=== PATIENT | female | born 2000 | race African-American/Black ===

== ENCOUNTER 2020-02-23 14:25 | Emergency (ER) | payer SELFPAY ==
[2020-02-23 15:10] VITALS: BP 116/74; PULSE 75; RESP 18; TEMP 36.8; O2SAT 100; BMI 26.4
--- NOTE | 2020-02-23 15:38 | ED.FEMALEGU ---
HPI - Female Genitourinary General Chief complaint: Urogenital-Female Stated complaint: ?uti Time Seen by Provider: 02/23/20 15:21 Source: patient Mode of arrival: ambulatory Limitations: no limitations History of Present Illness HPI Narrative: States burning-like discomfort with urination/pressure since yesterday consistent with her previous UTI. No abdominal pain, pelvic pain, nausea vomiting. No vaginal bleeding, GI symptoms. No concern for STI per patient. No vaginal rash or lesions. MD elicited complaint: dysuria and UTI Pertinent past history: recurrent UTIs Onset (ago): day(s) Severity: mild Female Urogenital Radiation: Non-Radiating Vaginal discharge: none Vaginal bleeding: none Urinary symptoms: Dysuria Exacerbating factors: urination Relieving factors: none Associated symptoms: denies other symptoms Treatment prior to arrival: none Sexual activity: Yes Patient : No Related Data Previous Rx's Medication Instructions Recorded nitrofurantoin monohyd/m-cryst 100 mg PO Q12H 7 Days #14 cap 02/23/20 [Macrobid] phenazopyridine [Pyridium] 100 mg PO TID PRN #7 tab 02/23/20 Allergies Allergy/AdvReac Type Severity Reaction Status Date / Time Penicillins Allergy Swelling Verified 02/23/20 15:13 Review of Systems Review of Systems: Constitutional: No Weight loss, No Fever, No Chills, No Night Sweats, No Fatigue, No Malaise ENT/Mouth: No Hearing loss, No Ear Pain, No Nasal Congestion, No Sinus Pain, No Hoarseness Eyes: No Eye Pain, No Swelling, No Redness, No Foreign Body Cardiovascular: No Chest Pain, No SOB, No Dyspnea on Exertion, No Orthopnea, No Edema, No Palpitations Respiratory: No Cough, No Sputum, No Wheezing, No Smoke Exposure, No Dyspnea Gastrointestinal: No Nausea, No Vomiting, No Diarrhea, No Constipation, No abdominal Pain, No Hematochezia, No Melena Genitourinary: no irregular bleeding, + Dysuria, No Urinary Frequency, No Hematuria, No Urinary Incontinence, No Urgency, No Flank Pain, No Urinary Flow Changes, No Hesitancy Musculoskeletal: No joint pain, No Myalgias, No Joint Swelling Skin: No Skin Lesions, No rash Neuro: No Weakness, No Numbness, No Paresthesias, No Loss of Consciousness, No Dizziness, No Headache Psych: No Social Issues Heme/Lymph: No Bruising Endocrine: No Polyuria, No Polydipsia Yes all other systems are reviewed and are negative [facility] Past Medical History Medical History (Updated 02/23/20 @ 16:19 by Michael Pace NP) No known health problems Social History Social History Advance Directives: No Advance Directives Information Provided: Yes Physical Exam Vital Signs: Vital Signs: Last Vital Signs Temp 98.2 F 02/23/20 15:10 Pulse 75 02/23/20 15:10 Resp 18 02/23/20 15:10 BP 116/74 02/23/20 15:10 Pulse Ox 100 02/23/20 15:10 Body Mass Index 26.4 Reviewed Const: General: cooperative and healthy appearing; No acute distress or intoxicated appearing Nutritional Appearance: average body habitus Orientation/consciousness: patient oriented x3 HENMT: Head: Yes normal to inspection Ears: hearing grossly normal bilaterally Eyes: General: appearance normal, both eyes and all related structures Visual Lr: normal visual lr by confrontation Neck: Neck: Yes normal visual inspection and No tender Thyroid: Thyroid normal Chest: Chest palpation & inspection: normal inspection of the chest Resp: Effort & Inspection: normal respiratory effort GI: Inspection: Yes normal to inspection Percussion: Yes normal to percussion Auscultation: normal bowel sounds : General: Yes no CVA tenderness Back/Spine/Pelvis: Back: no CVA tenderness Neuro: General: patient oriented x3 Extrem: General: Yes normal to inspection Course Course Course Narrative: UA infected, negative. No signs or symptoms of pyelonephritis. Denies any concern for STI again. Will start on Macrobid/peridium. Clear precaution return follow-up instructions provided. Patient verbalized understanding. Stable for discharge. MDM - Female Genitourinary Lab Data Labs: Lab Results 02/23/20 02/23/20 Range/Units 15:39 15:39 Urine Color YELLOW Urine Appearance CLOUDY Urine pH 6.0 (5.0-8.0) Ur Specific [place] 1.025 (1.005-1.025) Urine Protein 1+ H (NEG-TRACE) MG/DL Urine Glucose (UA) NEG (NEG) MG/DL Urine Ketones NEG (NEG) MG/DL Urine Blood 3+ H (NEG) Urine Nitrite NEG (NEG) Ur Leukocyte Esterase 2+ H (NEG) Urine RBC 10-14 H (0) /HPF Urine WBC 15-29 H (0-4) /HPF Ur Squamous Epith Cells 2+ /LPF Urine Bacteria 3+ /LPF Urine Test NEGATIVE (NEGATIVE) Discharge Plan Discharge Clinical Impression: Urinary tract infection Patient Disposition: Home, Self-Care Instructions: Urinary Tract Infection in Women (ED) Prescriptions: New nitrofurantoin monohyd/m-cryst [Macrobid] 100 mg capsule 100 mg PO Q12H 7 Days Qty: 14 RF: 0 phenazopyridine [Pyridium] 100 mg tablet 100 mg PO TID PRN (Reason: pain) Qty: 7 RF: 0 Referrals: Physician,None [Primary Care Provider] - 5 days (Primary care)
[2020-02-23 15:48] LABS: Glucose Urine UA NEG (NEG); Leukocyte Esterase Urine 2+ (NEG); Nitrite Urine NEG (NEG); Specific Gravity - Urine 1.025 (1.005-1.025); Urine Blood 3+ (NEG); Urine Ketones NEG (NEG); Urine Protein 1+ MG/DL (NEG-TRACE)
[2020-02-23 15:51] LABS: Appearance Urine CLOUDY; Color Urine YELLOW; UPreg QC Valid YES; Urine Pregnancy NEGATIVE (NEGATIVE)
[2020-02-23 16:00] LABS: Bacteria Urine 3+ /LPF; Squamous Epithelial Cell Urine 2+ /LPF
== END 2020-02-23 16:38 | disposition home or self-care (01) ==
PROVIDERS: Nurse Practitioner Primary Care; Emergency Provider Internal Medicine
DX: N39.0 Urinary tract infection, site not specified (principal); R30.0 Dysuria; Z79.899 Other long term (current) drug therapy
CPT/HCPCS: 81001; 81025; 87086; 87088; 87186; 99283

== ENCOUNTER 2020-04-29 14:15 | Emergency (ER) | payer SELFPAY | END 2020-04-29 18:53 | disposition left against medical advice (07) | PROVIDERS: Emergency Provider Internal Medicine | DX: R30.0 Dysuria (principal) ==

== ENCOUNTER 2020-08-03 12:32 | Emergency (ER) | payer MEDICAID, SELFPAY ==
--- NOTE | ~2020-08-03 | US_ITS ---
EXAMINATION: US PELVIS AND TRANSVAGINAL CLINICAL INFORMATION: . Pain. Rule out ectopic. COMPARISON: None. TECHNIQUE: Transvaginal and transabdominal imaging of pelvis was performed. 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 It measures 8.15 cm in length, 4.18 cm in AP and 5.0 cm in transverse dimension. The endometrial is thickened measuring 1.6 cm with several small cystic areas. There is no intrauterine visualized. On transvaginal ultrasound, the uterus is homogeneous with no gestational sac or pole seen. The left ovary measures 3.1 x 2.8 x 2.5 cm and appears unremarkable. The right ovary measures 2.5 x 3.2 x 2.8 cm and appears unremarkable. There is no free fluid in cul-de-sac. US/US OB pelvic and transvaginal IMPRESSION: No pole or gestational sac seen on transabdominal and transvaginal ultrasound. The endometrium is thickened measuring 1.6 cm with several small cystic areas. Unremarkable ovaries. No free fluid seen in the cul-de-sac.
[2020-08-03 12:45] VITALS: BP 143/83; PULSE 79; RESP 16; TEMP 36.6; O2SAT 100; BMI 23.6
[2020-08-03 12:59] LABS: Glucose Urine UA 100 MG/DL (NEG); Leukocyte Esterase Urine NEG (NEG); Nitrite Urine NEG (NEG); PH 6.5 (5.0-8.0); Specific Gravity - Urine 1.025 (1.005-1.025); Urine Blood NEG (NEG); Urine Ketones 5 MG/DL (NEG); Urine Protein NEG (NEG-TRACE)
[2020-08-03 13:01] LABS: Appearance Urine CLEAR; Color Urine YELLOW; UPreg QC Valid YES; Urine Pregnancy POSITIVE (NEGATIVE)
--- NOTE | 2020-08-03 14:10 | ED_ITS ---
HPI - Abdominal Pain General Chief Complaint: Abdominal Pain Stated Complaint: UTI [facility] Time Seen by Provider: 08/03/20 14:08 Source: patient Mode of arrival: ambulatory Limitations: no limitations History of Present Illness HPI narrative: 20 yo female no PMH here with nausea, lower abdominal cramping overall not feeling well, realized she is late on her MD elicited complaint: abdominal pain Pertinent past history: other (late on her period) Onset (ago): day(s) (yesterday) Pain Consistency: intermittent Location: suprapubic Severity: mild Quality: cramping Radiation: none Migration to: no migration Exacerbating factors: nothing Relieving factors: nothing Associated symptoms: nausea Related Data Previous Rx's Medication Instructions Recorded nitrofurantoin monohyd/m-cryst 100 mg PO Q12H 7 Days #14 cap 02/23/20 [Macrobid] phenazopyridine [Pyridium] 100 mg PO TID PRN #7 tab 02/23/20 doxylamine-pyridoxine (vit B6) 1 tab PO BID #60 tab 08/03/20 vit [id number] 1 tab PO DAILY #90 tab 08/03/20 [ Vitamin] Allergies Allergy/AdvReac Type Severity Reaction Status Date / Time Penicillins Allergy Swelling Verified 02/23/20 15:13 Review of Systems Review of Systems Constitutional : No Weight loss, No Fever, No Chills ENT/Mouth : No sore throat, No Rhinorrhea Eyes: No Swelling, No Redness Cardiovascular : No Chest Pain, No SOB, NoEdema Respiratory : No Cough, No Sputum, No Wheezing Gastrointestinal : Positive Nausea, no Vomiting, no Diarrhea, positive abdominal Pain, No Hematochezia, No Melena Genitourinary : No Dysuria, No Urinary Frequency, No Hematuria, No Urgency , no bleeding no spotting Musculoskeletal : No joint pain, No Myalgias, No Joint Swelling Skin : No Skin Lesions, No rash Neuro : No Weakness, No Numbness, No Dizziness, No Headache Psych : No Anxiety/Panic, No Depression Heme/Lymph: No Bruising, No Lymphadenopathy Endocrine : No Polyuria, No Polydipsia All other systems reviewed and are negative. Physical Exam Vital Signs: Vital Signs: Last Vital Signs Temp 98.2 F 08/03/20 15:51 Pulse 74 08/03/20 15:51 Resp 18 08/03/20 15:51 BP 113/62 08/03/20 15:51 Pulse Ox 98 08/03/20 15:51 Body Mass Index 23.6 Appearance: Alert. Oriented X3. No acute distress. Eyes: Pupils equal, round and reactive to light. ENT: Pharynx normal. Neck: Normal inspection. Neck supple. CVS: Normal heart rate and rhythm. Pulses normal. Respiratory: No respiratory distress. Breath sounds normal. Abdomen: Soft and very mild suprapubic ttp no rebound or guarding Skin: Skin warm and dry. Normal skin color. Normal skin turgor. Extremities: No lower extremity edema. No calf ttp Neuro: Oriented X 3. No motor deficit. No sensory deficit. Course Course Course Narrative: signed out to Moriah Agudelo RECONCILEMENT CLERK pending labs, patient is already able to tolerate PO anticipate DC home with close OB follow up MDM - Abdominal Pain MDM Narrative Medical decision making narrative: 20 yo female G1 LMP around mid june here with lower abdominal pain and nausea - didn't know she was at this time will need labs, hydration, US to evaluate for ectopic, overall not toxic, benign exam, anticipate DC home. Lab Data Result diagrams: 08/03/20 16:31 08/03/20 16:31 Labs: Lab Results 08/03/20 08/03/20 Range/Units 12:51 12:51 Urine Color YELLOW Urine Appearance CLEAR Urine pH 6.5 (5.0-8.0) Ur Specific [place] 1.025 (1.005-1.025) Urine Protein NEG (NEG-TRACE) MG/DL Urine Glucose (UA) 100 H (NEG) MG/DL Urine Ketones 5 (NEG) MG/DL Urine Blood NEG (NEG) Urine Nitrite NEG (NEG) Ur Leukocyte Esterase NEG (NEG) Urine Test POSITIVE H (NEGATIVE) Discharge Plan Discharge Clinical Impression: Early stage of , Acute dehydration Instructions: (ED), Acute Nausea and Vomiting (ED) Additional Instructions: return to ED for any worsening symptoms or concerns you need to repeat a hormone level in 2 days to make sure it is going up please see OBGYN Prescriptions: New Vitamin 27 mg iron- 800 mcg tablet 1 tab PO DAILY Qty: 90 RF: 2 doxylamine-pyridoxine (vit B6) 10-10 mg tablet,delayed release (DR/EC) 1 tab PO BID Qty: 60 RF: 0 No Action nitrofurantoin monohyd/m-cryst [Macrobid] 100 mg capsule 100 mg PO Q12H 7 Days Qty: 14 RF: 0 phenazopyridine [Pyridium] 100 mg tablet 100 mg PO TID PRN (Reason: pain) Qty: 7 RF: 0 Referrals: Bee Crowe MD [Physician] - 2 days (any provider in group repeat hormone testing) Stand Alone Forms: Work/School Release [facility] [place] Past Medical History Attestation statement: The following information was validated with the patient. Medical History No known health problems Social History Social History (Updated 08/03/20 @ 15:39 by Kathy Navarro DO) Alcohol intake: never Smoking Status: Never smoker Advance Directives: Yes Advance Directives Information Provided: Yes Advance Directives on File: No Patient : No
[2020-08-03 15:51] VITALS: BP 113/62; PULSE 74; RESP 18; TEMP 36.8; O2SAT 98
[2020-08-03] MEDS: 0.9 % Sodium Chloride 1,000 ML 999 ML IVCONT (16:30)
[2020-08-03 16:37] LABS: MANUAL DIFF FLAG NO
[2020-08-03 16:40] LABS: Basophils Percent Auto 0.5 % (0-2); Eosinophils Absolute Auto 0.3 X10*3/uL (0.0-0.4); Eosinophils Percent Auto 3.4 % (0-4); Hematocrit 39.9 % (37-47); Hemoglobin 13.7 g/dl (12.0-16.0); Imm Gran Abs Auto 0.02 X10*3/uL (0.00-0.03); Imm Gran Pct Auto 0.3 % (0.0-0.4); Lymphocytes Absolute Auto 2.3 X10*3/uL (1.2-4.9); Lymphocytes Percent Auto 29.8 % (20-40); Mean Corpuscular HGB Conc 34.3 g/dl (31.0-35.0); Mean Corpuscular Hemoglobin 30.2 pg (27.0-33.0); Mean Corpuscular Volume 87.9 fL (80-98); Mean Platelet Volume 9.3 fL (9.4-12.3); Monocytes Absolute Auto 0.6 X10*3/uL (0.1-1.2); Monocytes Percent Auto 7.8 % (2-11); Neutrophils Absolute Auto 4.5 X10*3/uL (2.0-8.3); Neutrophils Percent Auto 58.2 % (45-73); Platelet Count 301 X10*3/uL (160-400); Red Blood Count 4.54 X10*6/uL (4.20-5.50); Red Cell Distribution Width 13.1 % (11.0-16.0); White Blood Count 7.7 X10*3/uL (4.8-10.8)
[2020-08-03 17:06] LABS: Anion Gap 11 (12-20); Blood Urea Nitrogen 6 mg/dL (9-16); Calcium 9.1 mg/dL (8.4-10.2); Carbon Dioxide 23 mmol/L (22-29); Chloride 107 mmol/L (96-108); Creatinine Clr Calc Pharmacy 104.9; Estimated Glomerular Filt Rate > 60; Glucose Random 80 mg/dL (60-115); Potassium 3.6 mmol/L (3.3-5.1); Sodium 137 mmol/L (135-145)
[2020-08-03 17:09] LABS: Alanine Aminotransferase 11 U/L (0-31); Albumin Level 4.3 g/dL (3.5-5.0); Alkaline Phosphatase 62 U/L (39-117); Aspartate Amino Transferase 13 U/L (5-31); Bilirubin Direct 0.2 mg/dL (0.0-0.5); Bilirubin Total 0.5 mg/dL (0.0-1.0); Lipase 18 U/L (8-78); Magnesium 1.9 mg/dL (1.6-2.6)
[2020-08-03 17:15] LABS: HCG Quantitative 1190 mIU/mL
--- NOTE | 2020-08-03 17:42 | PM.GYNCN ---
DIRECTOR OF BLOOD - CN: HPI Data of Consult Consult date: 08/03/20 Primary Care Provider: None Physician Consult Narrative Narrative: I Was consulted regarding Lisa Jasso who is a 20 year old female who presented emergency room with suprapubic discomfort, no vaginal bleeding no other symptoms. 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 PROFESSIONAL - Review of Systems Review of Systems ROS Unobtainable: All systems reviewed & are unremarkable except as noted in HPI and below Cardiovascular: Denies Palpatations, Loss of consciousness and Chest pain Respiratory: Denies Cough, Wheezing and Shortness of breath Musculoskeletal: Denies Low back pain Gastrointestinal: Denies Heartburn, Constipation, Diarrhea, Nausea and Vomiting Genitourinary: Denies Pain with urination, Burning with urination and Urinary frequency Neurological: Denies Migranes Psychological: Denies Depression OB PMFSH Past Medical History Medical History No known health problems Social History Social History Alcohol intake: never Smoking Status: Never smoker Advance Directives: Yes Advance Directives Information Provided: Yes Advance Directives on File: No Patient : No Meds Allergies Allergy/AdvReac Type Severity Reaction Status Date / Time Penicillins Allergy Swelling Verified 02/23/20 15:13 DIRECTOR OF BLOOD Physical Exam Vitals Vital signs: Temp Pulse Resp BP Pulse Ox 98.2 F 74 18 113/62 98 08/03/20 15:51 08/03/20 15:51 08/03/20 15:51 08/03/20 15:51 08/03/20 15:51 Body Mass Index 23.6 Abdomen Auscultation/Inspection/Palpation: Normal bowel sounds, Soft, Non-distended and No tenderness Additional Comments: Physical exam performed by Jasmin Agudelo DIRECTOR OF BLOOD - Results Labs CBC & Chem 7: 08/03/20 16:31 08/03/20 16:31 Labs: Short CBC 08/03/20 Range/Units 16:31 WBC 7.7 (4.8-10.8) X10*3/uL Hgb 13.7 (12.0-16.0) g/dl Hct 39.9 (37-47) % Plt Count 301 (160-400) X10*3/uL BMP 08/03/20 16:31 Sodium 137 Potassium 3.6 Chloride 107 Carbon Dioxide 23 BUN 6 L Creatinine 0.64 Calcium 9.1 Liver Function 08/03/20 Range/Units 16:31 Total Bilirubin 0.5 (0.0-1.0) mg/dL Direct Bilirubin 0.2 (0.0-0.5) mg/dL AST 13 (5-31) U/L ALT 11 (0-31) U/L Alkaline Phosphatase 62 (39-117) U/L Albumin 4.3 (3.5-5.0) g/dL Urine 08/03/20 08/03/20 Range/Units 12:51 12:51 Urine Color YELLOW Urine Appearance CLEAR Urine pH 6.5 (5.0-8.0) Ur Specific [place] 1.025 (1.005-1.025) Urine Protein NEG (NEG-TRACE) MG/DL Urine Glucose (UA) 100 H (NEG) MG/DL Urine Test POSITIVE H (NEGATIVE) Assessment and Plan (1) Early stage of : Status: Acute After a phone, consultation was Jasmin Agudelo, recommended hCG in 48 hours and evaluation in the office. SAB/ectopic warnings to be given to the patient, she is to call if abdominal pain vaginal bleeding nausea and vomiting occur otherwise follow-up in our office in 48 hours after hCG for in-person evaluation. This was a phone consultation from the emergency room I have not seen or examined the patient
== END 2020-08-03 18:06 | disposition home or self-care (01) ==
PROVIDERS: Emergency Provider Emergency Medicine
DX: O26.891 Other specified pregnancy related conditions, first trimester (principal); R10.30 Lower abdominal pain, unspecified; Z3A.01 Less than 8 weeks gestation of pregnancy
CPT/HCPCS: 36415; 76801; 76817; 80048; 80076; 81003; 81025; 83690; 83735; 84702; 85025; 96360; 99284

== ENCOUNTER 2020-08-05 11:11 | Outpatient (REF) | payer MEDICAID, SELFPAY ==
--- NOTE | ~2020-08-05 | US_ITS ---
EXAMINATION: PELVIC ULTRASOUND CLINICAL INFORMATION: Pain. Rule out ectopic . COMPARISON: Previous OB ultrasound 08/03/2020 TECHNIQUE: Transabdominal and transvaginal pelvic ultrasound was performed. Transvaginal exam was performed for better visualization of the uterus and ovaries. FINDINGS: The uterus is normal in size and shape and measures 7.3 x 4.1 x 4.6 cm in dimension. The endometrium is upper normal in thickness measuring 1.6 cm. There is a new cyst seen in the endometrium with thick echogenic wall questionable for a gestational sac. Mean sac diameter measures 0.5 cm which would suggest gestational age of 5 weeks 0 days. The right ovary is normal-appearing and measures 3.5 x 1.8 x 2.4 cm. The left ovary measures 4.1 x 3.3 x 2.5 cm. There is a new 1.9 x 1.8 x 2.1 cm complex cyst probably representing a corpus luteum. No adnexal mass is seen. There is no fluid in the pelvis. US/US OB pelvic and transvaginal IMPRESSION: Upper normal thickness endometrium. New thick-walled endometrial cyst questionable for a gestational sac. Mean sac diameter would suggest gestational age of 5 weeks 0 days. New 1.9 x 1.8 x 2.1 cm complex cyst in the left ovary questionable for a corpus luteum.
[2020-08-05 13:11] LABS: HCG Quantitative 3368 mIU/mL
== END 2020-08-05 11:12 | disposition home or self-care (01) ==
LOC: HO.LAB 11:11
PROVIDERS: Visit Provider Obstetrics & Gynecology
DX: Z34.90 Encounter for supervision of normal pregnancy, unspecified, unspecified trimester (principal)
CPT/HCPCS: 36415; 76801; 76817; 84702

== ENCOUNTER 2020-08-05 15:55 | Outpatient (REF) | payer MEDICAID, SELFPAY | END 2020-08-05 15:56 | disposition home or self-care (01) | LOC: HO.US 15:55 | PROVIDERS: Visit Provider Obstetrics & Gynecology | DX: Z13.89 Encounter for screening for other disorder (principal) ==

== ENCOUNTER → 2020-08-06 15:05 | Outpatient (BNVA) | payer MEDICAID, SELFPAY | PROVIDERS: Visit Provider Obstetrics & Gynecology | DX: Z34.90 Encounter for supervision of normal pregnancy, unspecified, unspecified trimester (principal); Z3A.00 Weeks of gestation of pregnancy not specified | CPT/HCPCS: 99212 ==

== ENCOUNTER 2020-08-07 07:21 | Outpatient (REF) | payer MEDICAID, SELFPAY ==
[2020-08-07 08:42] LABS: HCG Quantitative 7018 mIU/mL
== END 2020-08-07 07:22 | disposition home or self-care (01) ==
LOC: HO.LAB 07:21
PROVIDERS: Visit Provider Obstetrics & Gynecology
DX: Z34.90 Encounter for supervision of normal pregnancy, unspecified, unspecified trimester (principal)
CPT/HCPCS: 36415; 84702

== ENCOUNTER → 2020-08-09 15:24 | Outpatient (BNVA) | payer MEDICAID, SELFPAY | PROVIDERS: Visit Provider Obstetrics & Gynecology ==

== ENCOUNTER 2020-08-20 10:28 | Outpatient (REF) | payer MEDICAID, SELFPAY ==
--- NOTE | ~2020-08-20 | US_ITS ---
EXAMINATION: OBSTETRICAL ULTRASOUND, FIRST TRIMESTER HISTORY: 20-year-old with uncertain viability LMP: 06/28/2020 COMPARISON: 08/05/2020 TECHNIQUE: Real time transabdominal imaging with color and M-mode Doppler. Transvaginal ultrasound was performed using an endovaginal probe for better resolution. FINDINGS: A single, live IUP CRL of 7.7 mm c/w 6.wks is noted. Heart Rate: 136 beats per minute. Both maternal ovaries are seen and appear normal. GESTATIONAL AGE: 1. GA from LMP: 7.4 wks 2. GA from AUA: 6.5 wks ESTIMATED DATE OF DELIVERY: 1. ERVIN from LMP: 04/04/2021 2. ERVIN from AUA: 04/10/2021 US/US OB <= 14 weeks fetus IMPRESSION: 1. A single live IUP with CRL consistent with 6 weeks 5 days of gestation. 2. Normal ovaries 3. Discussion: There is a 6 day discrepancy between today's AUA and LMP based gestational age. I would recommend adjusting her ERVIN to 04/10/2021 based on today's examination. I informed the patient of the size date discrepancy. She reports having irregular periods. Her cycles tend to be short of an 28 days. Thank you very much for this referral. This note was generated with a voice recognition program. Please excuse any errors which may have been overlooked during my review of this note. Sometimes these errors may affect the content or meaning of a given sentence.
--- NOTE | ~2020-08-20 | US_ITS ---
EXAMINATION: OBSTETRICAL ULTRASOUND, FIRST TRIMESTER HISTORY: 20-year-old with uncertain viability LMP: 06/28/2020 COMPARISON: 08/05/2020 TECHNIQUE: Real time transabdominal imaging with color and M-mode Doppler. Transvaginal ultrasound was performed using an endovaginal probe for better resolution. FINDINGS: A single, live IUP CRL of 7.7 mm c/w 6.wks is noted. Heart Rate: 136 beats per minute. Both maternal ovaries are seen and appear normal. GESTATIONAL AGE: 1. GA from LMP: 7.4 wks 2. GA from AUA: 6.5 wks ESTIMATED DATE OF DELIVERY: 1. ERVIN from LMP: 04/04/2021 2. ERVIN from AUA: 04/10/2021 US/US OB transvaginal IMPRESSION: 1. A single live IUP with CRL consistent with 6 weeks 5 days of gestation. 2. Normal ovaries 3. Discussion: There is a 6 day discrepancy between today's AUA and LMP based gestational age. I would recommend adjusting her ERVIN to 04/10/2021 based on today's examination. I informed the patient of the size date discrepancy. She reports having irregular periods. Her cycles tend to be short of an 28 days. Thank you very much for this referral. This note was generated with a voice recognition program. Please excuse any errors which may have been overlooked during my review of this note. Sometimes these errors may affect the content or meaning of a given sentence.
== END 2020-08-20 10:29 | disposition home or self-care (01) ==
LOC: HO.US 10:28
PROVIDERS: Visit Provider Obstetrics & Gynecology
DX: Z34.90 Encounter for supervision of normal pregnancy, unspecified, unspecified trimester (principal)
CPT/HCPCS: 76801; 76817

== ENCOUNTER → 2020-08-24 14:43 | Outpatient (BNVA) | payer MEDICAID, SELFPAY | PROVIDERS: Visit Provider Obstetrics & Gynecology | DX: Z34.90 Encounter for supervision of normal pregnancy, unspecified, unspecified trimester (principal) | CPT/HCPCS: 99212 ==

== ENCOUNTER 2020-09-04 08:46 | Emergency (ER) | payer OTHER, SELFPAY ==
--- NOTE | ~2020-09-04 | US_ITS ---
EXAMINATION: US ABDOMEN COMPLETE US TARGETED RIGHT LOWER QUADRANT CLINICAL INFORMATION: A 20-year-old female, 11 weeks presented with diffuse abdominal pain.. COMPARISON: None TECHNIQUE: Real-time imaging of the abdominal viscera. FINDINGS: PANCREAS: The head is nonvisualized due to overlying bowel gas, the remainder of the visualized pancreas is unremarkable. ABDOMINAL AORTA: The proximal, mid, and distal segments are normal in caliber. INFERIOR VENA CAVA: Visualized portions are normal. LIVER: Normal. The liver is normal in size. The liver contour is normal. Parenchymal echogenicity is normal. No focal hepatic lesion. There is no intrahepatic biliary duct dilatation seen. GALLBLADDER: Normal. The gallbladder is physiologically distended without evidence of stones, sludge, polyps, wall thickening or pericholecystic fluid. COMMON BILE DUCT: Normal in caliber measuring 0.3 cm in diameter. RIGHT KIDNEY: Normal. No hydronephrosis. No renal calculi or focal parenchymal lesions. The kidney measures 10.7 cm in maximum dimension. LEFT KIDNEY: Normal. No hydronephrosis. No renal calculi or focal parenchymal lesions. The kidney measures 11.0 cm in maximum dimension. SPLEEN: Normal. The spleen measures 9.8 cm in maximum dimension. FREE FLUID: None. RIGHT LOWER QUADRANT: Nonvisualized appendix. No evidence of any localized fluid collection or mass or lymphadenopathy. US/US appendix IMPRESSION: 1. Sonographically unremarkable upper abdominal ultrasound. 2. Nonvisualized appendix at right lower quadrant of the abdomen. Appendicitis is not accordingly excluded. Alternative imaging modality may be considered for further clarification. No evidence of any localized fluid collection or mass or lymphadenopathy at right lower quadrant.
--- NOTE | ~2020-09-04 | US_ITS ---
EXAMINATION: US OBSTETRICAL ULTRASOUND-LIMITED CLINICAL INFORMATION: A 20-year-old female with 11 weeks , presents with diffuse abdominal pain. COMPARISON: Pelvic ultrasound done on 08/20/2020. TECHNIQUE: Ultrasound of the maternal pelvis is performed using transabdominal transducer. M-mode Doppler is also performed. Please note the study was performed only to assess for viability. Gestational age was not estimated per protocol. FINDINGS: There is a single intrauterine gestational sac with visible yolk sac, embryo/fetus, and cardiac activity. There is a new subchorionic hemorrhage present measuring 2.1 x 0.8 x 2.0 cm, posterior, inferior to the gestational sac since the prior ultrasound done on 08/20/2020. HR: 170 beats per minute. MATERNAL ADNEXA: The right maternal ovary measures 3.6 x 2.2 x 2.2 cm. The left maternal ovary measures 2.0 x 2.1 x 2.2 cm. There is no significant maternal adnexal mass. No maternal pelvic ascites. US/US OB limited IMPRESSION: 1. Single live intrauterine gestation. 2. Note is made of interval development of small subarachnoid hemorrhage measuring 2.1 cm at its maximum dimension, new since 08/20/2020. Please note that gestational age was not assessed (per protocol) since this was a limited study performed for assessment of viability only .
--- NOTE | ~2020-09-04 | US_ITS ---
EXAMINATION: US ABDOMEN COMPLETE US TARGETED RIGHT LOWER QUADRANT CLINICAL INFORMATION: A 20-year-old female, 11 weeks presented with diffuse abdominal pain.. COMPARISON: None TECHNIQUE: Real-time imaging of the abdominal viscera. FINDINGS: PANCREAS: The head is nonvisualized due to overlying bowel gas, the remainder of the visualized pancreas is unremarkable. ABDOMINAL AORTA: The proximal, mid, and distal segments are normal in caliber. INFERIOR VENA CAVA: Visualized portions are normal. LIVER: Normal. The liver is normal in size. The liver contour is normal. Parenchymal echogenicity is normal. No focal hepatic lesion. There is no intrahepatic biliary duct dilatation seen. GALLBLADDER: Normal. The gallbladder is physiologically distended without evidence of stones, sludge, polyps, wall thickening or pericholecystic fluid. COMMON BILE DUCT: Normal in caliber measuring 0.3 cm in diameter. RIGHT KIDNEY: Normal. No hydronephrosis. No renal calculi or focal parenchymal lesions. The kidney measures 10.7 cm in maximum dimension. LEFT KIDNEY: Normal. No hydronephrosis. No renal calculi or focal parenchymal lesions. The kidney measures 11.0 cm in maximum dimension. SPLEEN: Normal. The spleen measures 9.8 cm in maximum dimension. FREE FLUID: None. RIGHT LOWER QUADRANT: Nonvisualized appendix. No evidence of any localized fluid collection or mass or lymphadenopathy. US/US abdomen complete IMPRESSION: 1. Sonographically unremarkable upper abdominal ultrasound. 2. Nonvisualized appendix at right lower quadrant of the abdomen. Appendicitis is not accordingly excluded. Alternative imaging modality may be considered for further clarification. No evidence of any localized fluid collection or mass or lymphadenopathy at right lower quadrant.
[2020-09-04 08:53] VITALS: BP 114/71; PULSE 74; RESP 16; TEMP 37.2; O2SAT 99; BMI 26.2
--- NOTE | 2020-09-04 10:05 | ED.PREGNANCY ---
HPI - General Chief complaint: Abdominal Pain Stated complaint: ABD PAIN Time Seen by Provider: 09/04/20 09:24 Source: patient Mode of arrival: ambulatory Limitations: no limitations History of Present Illness HPI Narrative: 20-year-old female who is currently nine weeks with the current estimated due date confirmed by ultrasound of 04/10/2021 who is [id number] presenting to the ED with complaints of nausea/vomiting intermittently over the past few weeks with associated intermittent headaches although lower abdominal pain that started this morning. Reports the lower abdominal pain has now migrated and is diffusely throughout her entire abdomen. Reports associated constipation reports she went approximately 3-4 days ago although a small amount. She also complains of a malodorous yellow colored vaginal discharge as well. Patient also admits to heartburn and has not been taking anything for the heartburn. Denies any fevers, dizziness, blood in her emesis, neck pain/stiffness, cough, sore throat, chest pain, shortness of breath, palpitations, back pain, dysuria, hematuria, vaginal bleeding, diarrhea, lower extremity edema, bad food exposure, recent travel or sick contacts or any other symptoms complaints or concerns at this time. MD Complaint: abdominal pain and vaginal discharge Onset (ago): hour(s) Pain Consistency: constant Location: pelvis and abdomen Related Data Previous Rx's Medication Instructions Recorded nitrofurantoin monohyd/m-cryst 100 mg PO Q12H 7 Days #14 cap 02/23/20 [Macrobid] phenazopyridine [Pyridium] 100 mg PO TID PRN #7 tab 02/23/20 doxylamine-pyridoxine (vit B6) 1 tab PO BID #60 tab 08/03/20 vit [id number] 1 tab PO DAILY #90 tab 08/03/20 [ Vitamin] pyridoxine (vitamin B6) 25 mg 25 mg PO tid PRN 30 Days #90 tab 08/24/20 tablet acetaminophen [Tylenol Extra 1,000 mg PO QID PRN #14 tab 09/04/20 Strength] cimetidine 800 mg PO BID #60 tab 09/04/20 docusate sodium [Colace] 100 mg PO BID PRN #60 cap 09/04/20 metronidazole [Flagyl] 500 mg PO BID 7 Days #14 tab 09/04/20 miconazole nitrate [Miconazole 7] 1 appful VAGINAL BEDTIME 7 Days g 09/04/20 ondansetron HCl [Zofran] 4 mg PO Q8H PRN #14 tab 09/04/20 psyllium husk [Metamucil] 1 tbsp PO DAILY #660 g 09/04/20 Allergies Allergy/AdvReac Type Severity Reaction Status Date / Time Penicillins Allergy Swelling Verified 08/24/20 15:00 Review of Systems Review of Systems: Constitutional : No Fever, No Chills ENT/Mouth : No sore throat, No Rhinorrhea Eyes: No Eye Pain, No Redness Cardiovascular : No Chest Pain, No SOB Respiratory : No Cough, No Sputum, No Wheezing Gastrointestinal : Positive nausea/vomiting/abdominal pain/constipation, No Diarrhea Genitourinary : Positive abnormal yellow malodorous discharge noted, No irregular bleeding, No Dysuria, No Urinary Frequency, No pelvic pain Musculoskeletal : No Myalgias Skin : No rash Neuro : Positive intermittent headaches, No Weakness Psych : No Anxiety/Panic, No Depression Heme/Lymph: No bruising, No Lymphadenopathy Endocrine : No Polyuria, No Polydipsia Yes all other systems are reviewed and are negative [facility] Past Medical History Attestation statement: The following information was validated with the patient. Medical History No known health problems Family History Family History Father HTN (hypertension) Social History Social History Alcohol intake: never Patient Tobacco Use Status: Never used Tobacco Use of substances other than those prescribed or required for medical reasons: No Advance Directives: Yes Advance Directives Information Provided: No Advance Directives on File: No Patient : Yes Sexual orientation: Straight/Heterosexual Gender identity: female Physical Exam Vital Signs: Vital Signs: Last Vital Signs Temp 98.5 F 09/04/20 12:06 Pulse 75 09/04/20 12:06 Resp 18 09/04/20 12:06 BP 120/58 L 09/04/20 12:06 Pulse Ox 99 09/04/20 12:06 Body Mass Index 26.2 vital signs have been reviewed as normal and appeared to be correct. Blood pressure normal. Heart rate normal. Respiration rate normal. Temperature normal. Oxygen saturation normal. Appearance: Alert. Oriented X3. No acute distress. Head: Normal external exam. Normocephalic. Atraumatic. Eyes: PERRLA. EOMI. Conjunctiva and sclera normal. Eyelids normal. ENT: Pharynx normal. Uvula midline. Moist mucous membranes. Neck: Normal inspection. Neck supple. FROM. No adenopathy. Thyroid Normal. No meningeal signs. No neck mass noted. CVS: Normal heart rate and rhythm. Heart sound normal. No murmurs noted. Pulses normal throughout. Respiratory: No respiratory distress. Painless inspiration. Breath sounds normal. No wheezes/rales/rhonchi noted. Chest nontender. No accessory muscle usage noted or decreased air movement noted. Abdomen: Soft and mild ttp to RUQ/LUQ/LLQ no RLQ on exam today at all per patient. Bowel sounds normal in all 4 quadrants. No distention noted. No organomegaly noted. No visible injury noted. : Supervised by MEREDITH Kuo and MEREDITH Noel. Normal external appearance of urethra. Patient noted to have a thin white colored discharge on exam. No lesions/lacerations or tenderness noted. Speculum exam normal appearance/palpation of vagina normal. No abnormal vaginal discharge noted. Otherwise no vaginal erythema. No foreign bodies noted. No vaginal laceration/lesions or active bleeding noted. No tissue present in vagina. No vaginal mass noted. No vaginal swelling noted. No vaginal tenderness noted. At the cervical os patient has erythema and irritation otherwise the rest of the cervix appears within normal limits. Normal palpation of cervix. Cervical os is closed. No cervical lesion/mass. No Bartholin cyst noted. No cervical motion tenderness noted. Negative chandelier sign. Normal bimanual exam. Uterine size normal. Bladder normal to palpation. Uterine consistency normal. Normal cervical palpation. Uterine mobility normal. Uterine shape normal. Normal adnexa. Normal rectovaginal exam. Back: No CVA tenderness. Full range of motion noted. Skin: Skin warm and dry. Normal skin color. Normal skin turgor. No rashes/lesions/lacerations noted. Extremities: No lower extremity edema. Extremities exhibit normal range of motion. Extremities nontender. Neuro: Oriented X 3. No motor deficit. No sensory deficit. Reflexes normal. Course Course Course Narrative: 9:30am - 20-year-old female who is currently nine weeks with the current estimated due date confirmed by ultrasound of 04/10/2021 who is [id number] presenting to the ED with complaints of nausea/vomiting intermittently over the past few weeks with associated intermittent headaches although lower abdominal pain that started this morning. Reports the lower abdominal pain has now migrated and is diffusely throughout her entire abdomen. Reports associated constipation reports she went approximately 3-4 days ago although a small amount. She also complains of a malodorous yellow colored vaginal discharge as well. -On exam patient is alert and oriented x3. Not in any acute distress. Lungs clear to auscultation. CV RRR. Abdomen is soft although patient has tenderness to palpation to right upper quadrant/left upper quadrant/left lower quadrant and suprapubic area although no tenderness at all to the right lower quadrant on exam and per patient. Plan: Labs, abs us, appendix US, OB US, UA, serum quant, bacterial vaginosis swab, Trichomonas swab, yeast swab, gonorrhea chlamydia swab. Provide a L of IV fluids and 4 mg of Zofran then re-evaluate. Reevaluation(s) Reevaluation #1: - labs reviewed and all within normal limits. Serum quant propylene elevated. UA revealed 100 glucose and 1+1 leukocytes otherwise no evidence of UTI. Patient negative for COVID. Trichomonas negative. Pending bacterial vaginosis/yeast/gonorrhea chlamydia swabs. - obstetrical ultrasound revealed single live intrauterine gestation and there is noted to be a small subchorionic hemorrhage measuring 2.1 cm at its maximum dimension new since 08/20/2020. - ultrasound of abdomen and appendix revealed no acute processes although the appendix was unable to be visualized and cannot be excluded - although again patient does not have any right lower quadrant tenderness at this time. - I consulted with Dr. Bundy and he recommended a blood type and screen due to the subchorionic hemorrhage and to give RhoGAM if indicated due to the subchorionic hemorrhage. - I also went back into the room and re-evaluated the patient with Dr. ingrid ingram and he agrees with my exam patient does not have any right lower quadrant tenderness although we gave her specific instructions if her pain starts to go to the right lower quadrant that she needs to return here or to [facility] for an MRI due to we do not have MRI services at this time due to the machine is broken. - therefore pending at this time is gonorrhea/chlamydia/yeast/bacterial vaginosis and blood type and screen will re-evaluate. Time: 12:54 Reevaluation #2: - patient is A positive for blood type I printed out a copy of the results and gave the copy to the patient so she can have this for her records. 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 Will DC home with heartburn medication along with constipation medication. Patient understands agrees with this plan. Time: 14:00 MDM - OB/Uterine Contractions Medical Records Attestation: I reviewed the patient's medical records. Lab Data Attestation: I reviewed the patient's lab results. Result diagrams: 09/04/20 10:13 09/04/20 10:12 Labs: Lab Results 09/04/20 09/04/20 09/04/20 Range/Units 10:12 10:12 10:12 WBC (4.8-10.8) X10*3/uL RBC (4.20-5.50) X10*6/uL Hgb (12.0-16.0) g/dl Hct (37-47) % MCV (80-98) fL MCH (27.0-33.0) pg MCHC (31.0-35.0) g/dl RDW (11.0-16.0) % Plt Count (160-400) X10*3/uL MPV (9.4-12.3) fL Immature Gran % (Auto) (0.0-0.4) % Neut % (Auto) (45-73) % Lymph % (Auto) (20-40) % Imperial % (Auto) (2-11) % Eos % (Auto) (0-4) % Baso % (Auto) (0-2) % Lymph # (Auto) (1.2-4.9) X10*3/uL Imperial # (Auto) (0.1-1.2) X10*3/uL Eos # (Auto) (0.0-0.4) X10*3/uL Baso # (Auto) (0.0-0.2) X10*3/uL Abs Immat Gran (auto) (0.00-0.03) X10*3/uL Absolute Neuts (auto) (2.0-8.3) X10*3/uL Absolute Nucleated RBC (0.0-0.012) X10*3/uL Nucleated RBC % (auto) (0.0-0.2) /100WBC PT 13.3 H (10.8-13.0) SEC INR 1.1 (0.9-1.1) Sodium 136 (135-145) mmol/L Potassium 4.0 (3.3-5.1) mmol/L Chloride 106 (96-108) mmol/L Carbon Dioxide 23 (22-29) mmol/L Anion Gap 11 L (12-20) BUN 8 L (9-16) mg/dL Creatinine 0.61 (0.5-1.4) mg/dL Estim Creat Clear Calc 124.1 Estimated GFR > 60 Random Glucose 79 (60-115) mg/dL Calcium 8.9 (8.4-10.2) mg/dL Magnesium 1.8 (1.6-2.6) mg/dL Total Bilirubin 0.3 (0.0-1.0) mg/dL AST 16 (5-31) U/L ALT 10 (0-31) U/L Alkaline Phosphatase 56 (39-117) U/L Total Protein 6.8 (6.5-8.0) g/dL Albumin 4.1 (3.5-5.0) g/dL Beta HCG, Quant 899186 mIU/mL Urine Color Urine Appearance Urine pH (5.0-8.0) Ur Specific Telferner (1.005-1.025) Urine Protein (NEG-TRACE) MG/DL Urine Glucose (UA) (NEG) MG/DL Urine Ketones (NEG) MG/DL Urine Blood (NEG) Urine Nitrite (NEG) Ur Leukocyte Esterase (NEG) Urine RBC (0) /HPF Urine WBC (0-4) /HPF Ur Squamous Epith Cells /LPF Amorphous Sediment /LPF Urine Bacteria /LPF Urine Mucus /LPF COVID-19 (ROBYN) Negative (Negative) COVID-19 Clin Com See Note Blood Type 09/04/20 09/04/20 09/04/20 Range/Units 10:13 10:13 13:18 WBC 7.9 (4.8-10.8) X10*3/uL RBC 4.53 (4.20-5.50) X10*6/uL Hgb 13.8 (12.0-16.0) g/dl Hct 40.0 (37-47) % MCV 88.3 (80-98) fL MCH 30.5 (27.0-33.0) pg MCHC 34.5 (31.0-35.0) g/dl RDW 13.4 (11.0-16.0) % Plt Count 267 (160-400) X10*3/uL MPV 9.2 L (9.4-12.3) fL Immature Gran % (Auto) 0.4 (0.0-0.4) % Neut % (Auto) 68.0 (45-73) % Lymph % (Auto) 21.0 (20-40) % Imperial % (Auto) 8.1 (2-11) % Eos % (Auto) 1.9 (0-4) % Baso % (Auto) 0.6 (0-2) % Lymph # (Auto) 1.7 (1.2-4.9) X10*3/uL Imperial # (Auto) 0.6 (0.1-1.2) X10*3/uL Eos # (Auto) 0.2 (0.0-0.4) X10*3/uL Baso # (Auto) 0.1 (0.0-0.2) X10*3/uL Abs Immat Gran (auto) 0.03 (0.00-0.03) X10*3/uL Absolute Neuts (auto) 5.3 (2.0-8.3) X10*3/uL Absolute Nucleated RBC 0.000 (0.0-0.012) X10*3/uL Nucleated RBC % (auto) 0.0 (0.0-0.2) /100WBC PT (10.8-13.0) SEC INR (0.9-1.1) Sodium (135-145) mmol/L Potassium (3.3-5.1) mmol/L Chloride (96-108) mmol/L Carbon Dioxide (22-29) mmol/L Anion Gap (12-20) BUN (9-16) mg/dL Creatinine (0.5-1.4) mg/dL Estim Creat Clear Calc Estimated GFR Random Glucose (60-115) mg/dL Calcium (8.4-10.2) mg/dL Magnesium (1.6-2.6) mg/dL Total Bilirubin (0.0-1.0) mg/dL AST (5-31) U/L ALT (0-31) U/L Alkaline Phosphatase (39-117) U/L Total Protein (6.5-8.0) g/dL Albumin (3.5-5.0) g/dL Beta HCG, Quant mIU/mL Urine Color YELLOW Urine Appearance HAZY Urine pH 7.5 (5.0-8.0) Ur Specific Telferner 1.015 (1.005-1.025) Urine Protein NEG (NEG-TRACE) MG/DL Urine Glucose (UA) 100 H (NEG) MG/DL Urine Ketones NEG (NEG) MG/DL Urine Blood NEG (NEG) Urine Nitrite NEG (NEG) Ur Leukocyte Esterase 1+ H (NEG) Urine RBC 0 (0) /HPF Urine WBC 1-4 (0-4) /HPF Ur Squamous Epith Cells 2+ /LPF Amorphous Sediment 1+ /LPF Urine Bacteria NONE /LPF Urine Mucus 1+ /LPF COVID-19 (ROBYN) (Negative) COVID-19 Clin Com Blood Type A Positive Imaging Data Complete abdominal ultrasound/appendix ultrasound: Attestation: I personally reviewed and interpreted this imaging study as follows: Radiologist's impression: FINDINGS: PANCREAS: The head is nonvisualized due to overlying bowel gas, the remainder of the visualized pancreas is unremarkable. ABDOMINAL AORTA: The proximal, mid, and distal segments are normal in caliber. INFERIOR VENA CAVA: Visualized portions are normal. LIVER: Normal. The liver is normal in size. The liver contour is normal. Parenchymal echogenicity is normal. No focal hepatic lesion. There is no intrahepatic biliary duct dilatation seen. GALLBLADDER: Normal. The gallbladder is physiologically distended without evidence of stones, sludge, polyps, wall thickening or pericholecystic fluid. COMMON BILE DUCT: Normal in caliber measuring 0.3 cm in diameter. RIGHT KIDNEY: Normal. No hydronephrosis. No renal calculi or focal parenchymal lesions. The kidney measures 10.7 cm in maximum dimension. LEFT KIDNEY: Normal. No hydronephrosis. No renal calculi or focal parenchymal lesions. The kidney measures 11.0 cm in maximum dimension. SPLEEN: Normal. The spleen measures 9.8 cm in maximum dimension. FREE FLUID: None. RIGHT LOWER QUADRANT: Nonvisualized appendix. No evidence of any localized fluid collection or mass or lymphadenopathy. US/US abdomen complete IMPRESSION: 1. Sonographically unremarkable upper abdominal ultrasound. 2. Nonvisualized appendix at right lower quadrant of the abdomen. Appendicitis is not accordingly excluded. Alternative imaging modality may be considered for further clarification. No evidence of any localized fluid collection or mass or lymphadenopathy at right lower quadrant. Obstetrical ultrasound limited: Attestation: I personally reviewed and interpreted this imaging study as follows: Radiologist's impression: FINDINGS: There is a single intrauterine gestational sac with visible yolk sac, embryo/fetus, and cardiac activity. There is a new subchorionic hemorrhage present measuring 2.1 x 0.8 x 2.0 cm, posterior, inferior to the gestational sac since the prior ultrasound done on 08/20/2020. HR: 170 beats per minute. MATERNAL ADNEXA: The right maternal ovary measures 3.6 x 2.2 x 2.2 cm. The left maternal ovary measures 2.0 x 2.1 x 2.2 cm. There is no significant maternal adnexal mass. No maternal pelvic ascites. US/US OB limited IMPRESSION: 1. Single live intrauterine gestation. 2. Note is made of interval development of small subarachnoid hemorrhage measuring 2.1 cm at its maximum dimension, new since 08/20/2020. Please note that gestational age was not assessed (per protocol) since this was a limited study performed for assessment of viability only . Discharge Plan Discharge Clinical Impression: Subchorionic hemorrhage, Constipation, Heartburn, Hyperemesis gravidarum, Bacterial vaginosis, Marianne vaginitis Patient Disposition: Home, Self-Care Instructions: Hyperemesis Gravidarum (ED), Bacterial Vaginosis (ED), Constipation (ED), Yeast Infection (ED), Gastroesophageal Reflux Disease (ED), Subchorionic Hemorrhage (ED) Additional Instructions: You have pending lab results if any are positive you will be contacted. If you have worsening abdominal pain or if your abdominal pain begins in the right lower quadrant which she report is not at this time you need to return back to emergency department immediately our MRI machine is currently down therefore we would recommend going to [facility] if this occurs. If not you should return if any new or worsening symptoms follow-up with PCP and OBGYN. You are A positive for her blood type. Prescriptions: New ondansetron HCl [Zofran] 4 mg tablet 4 mg PO Q8H PRN (Reason: nausea and vomiting) Qty: 14 RF: 0 docusate sodium [Colace] 100 mg capsule 100 mg PO BID PRN (Reason: Constipation) Qty: 60 RF: 0 Metamucil 3.4 gram/5.4 gram powder 1 tbsp PO DAILY Qty: 660 RF: 0 cimetidine 800 mg tablet 800 mg PO BID Qty: 60 RF: 0 metronidazole [Flagyl] 500 mg tablet 500 mg PO BID 7 Days Qty: 14 RF: 0 acetaminophen [Tylenol Extra Strength] 500 mg tablet 1,000 mg PO QID PRN (Reason: fever or pain) Qty: 14 RF: 0 miconazole nitrate [Miconazole 7] 2 % cream 1 appful vaginal BEDTIME 7 Days RF: 0 No Action Vitamin 27 mg iron- 800 mcg tablet 1 tab PO DAILY Qty: 90 RF: 2 doxylamine-pyridoxine (vit B6) 10-10 mg tablet,delayed release (DR/EC) 1 tab PO BID Qty: 60 RF: 0 nitrofurantoin monohyd/m-cryst [Macrobid] 100 mg capsule 100 mg PO Q12H 7 Days Qty: 14 RF: 0 phenazopyridine [Pyridium] 100 mg tablet 100 mg PO TID PRN (Reason: pain) Qty: 7 RF: 0 pyridoxine (vitamin B6) [Vitamin B-6] 25 mg tablet 25 mg PO tid PRN (Reason: nausea) 30 Days Qty: 90 RF: 3
[2020-09-04 10:21] LABS: MANUAL DIFF FLAG NO
[2020-09-04 10:23] LABS: Basophils Absolute Auto 0.1 X10*3/uL (0.0-0.2); Basophils Percent Auto 0.6 % (0-2); Eosinophils Absolute Auto 0.2 X10*3/uL (0.0-0.4); Eosinophils Percent Auto 1.9 % (0-4); Hemoglobin 13.8 g/dl (12.0-16.0); Imm Gran Abs Auto 0.03 X10*3/uL (0.00-0.03); Imm Gran Pct Auto 0.4 % (0.0-0.4); Lymphocytes Absolute Auto 1.7 X10*3/uL (1.2-4.9); Mean Corpuscular HGB Conc 34.5 g/dl (31.0-35.0); Mean Corpuscular Hemoglobin 30.5 pg (27.0-33.0); Mean Corpuscular Volume 88.3 fL (80-98); Mean Platelet Volume 9.2 fL (9.4-12.3); Monocytes Absolute Auto 0.6 X10*3/uL (0.1-1.2); Monocytes Percent Auto 8.1 % (2-11); Neutrophils Absolute Auto 5.3 X10*3/uL (2.0-8.3); Platelet Count 267 X10*3/uL (160-400); Red Blood Count 4.53 X10*6/uL (4.20-5.50); Red Cell Distribution Width 13.4 % (11.0-16.0); White Blood Count 7.9 X10*3/uL (4.8-10.8)
[2020-09-04 10:26] LABS: Glucose Urine UA 100 MG/DL (NEG); Leukocyte Esterase Urine 1+ (NEG); Nitrite Urine NEG (NEG); PH 7.5 (5.0-8.0); Specific Gravity - Urine 1.015 (1.005-1.025); UACC Culture Trigger YES; Urine Blood NEG (NEG); Urine Ketones NEG (NEG); Urine Protein NEG (NEG-TRACE)
[2020-09-04] MEDS: 0.9 % Sodium Chloride 1,000 ML 999 ML IVCONT (10:27)
[2020-09-04] MEDS: Acetaminophen 325 MG TABLET 975 MG PO (10:27)
[2020-09-04] MEDS: ondansetron HCL 4 MG/2 ML VIAL IVPUSH (10:27)
[2020-09-04 10:29] LABS: Appearance Urine HAZY; Color Urine YELLOW
[2020-09-04 10:31] VITALS: BP 110/66; PULSE 73; RESP 16; O2SAT 100
[2020-09-04 10:31] LABS: INTERNATIONAL NORM RATIO 1.1 (0.9-1.1); Prothrombin Time 13.3 SEC (10.8-13.0)
[2020-09-04 10:33] LABS: Amorphous Sediment Urine 1+ /LPF; Mucus Urine 1+ /LPF; RBC Urine 0 /HPF (0); Squamous Epithelial Cell Urine 2+ /LPF
[2020-09-04 10:39] LABS: COVID-19 Test Negative (Negative); IDNOW Serial# 9DD0AD1C
[2020-09-04 10:48] LABS: Alanine Aminotransferase 10 U/L (0-31); Albumin Level 4.1 g/dL (3.5-5.0); Alkaline Phosphatase 56 U/L (39-117); Anion Gap 11 (12-20); Aspartate Amino Transferase 16 U/L (5-31); Bilirubin Total 0.3 mg/dL (0.0-1.0); Blood Urea Nitrogen 8 mg/dL (9-16); Calcium 8.9 mg/dL (8.4-10.2); Carbon Dioxide 23 mmol/L (22-29); Chloride 106 mmol/L (96-108); Creatinine Clr Calc Pharmacy 124.1; Estimated Glomerular Filt Rate > 60; Glucose Random 79 mg/dL (60-115); Magnesium 1.8 mg/dL (1.6-2.6); Sodium 136 mmol/L (135-145); Total Protein 6.8 g/dL (6.5-8.0)
--- NOTE | 2020-09-04 11:45 | PC.NURSE ---
Pelvic set up and exam done with Debra LEY. Cultures swabbed and sent to lab.
[2020-09-04 12:06] VITALS: BP 120/58; PULSE 75; RESP 18; TEMP 36.9; O2SAT 99
--- NOTE | 2020-09-04 13:06 | PM.GYNCN ---
SALES REPRESENTATIVES - CN: HPI Data of Consult Consult date: 09/04/20 Primary Care Provider: Unknown Physician Consult Narrative Narrative: I was called by JIL Walters in the emergency regarding Lisa Jasso who is a 20 year old female at nine weeks of gestation dated by ultrasound with an EDC of 04/10/2021. She presented to the ER complaining of nausea/vomiting associated with lower abdominal pain that started this morning. The lower abdominal pain is diffusely throughout her entire abdomen. She also complains of a malodorous yellow colored vaginal discharge as well. The workup included a CBC, chemistry 7, abdominal ultrasound all negative but appendix not identified. Pelvic OB ultrasound showed live intrauterine with 2.1 cm subchorionic hemorrhage. 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 - Review of Systems Review of Systems ROS Unobtainable: All systems reviewed & are unremarkable except as noted in HPI and below Cardiovascular: Denies Palpatations, Loss of consciousness and Chest pain Respiratory: Denies Cough, Wheezing and Shortness of breath Musculoskeletal: Denies Low back pain Gastrointestinal: Denies Heartburn, Constipation, Diarrhea, Nausea and Vomiting Genitourinary: Denies Pain with urination, Burning with urination and Urinary frequency Neurological: Denies Migranes Psychological: Denies Depression OB PMFSH Past Medical History Medical History No known health problems Family History Family History Father HTN (hypertension) Social History Social History Alcohol intake: never Patient Tobacco Use Status: Never used Tobacco Use of substances other than those prescribed or required for medical reasons: No Advance Directives: Yes Advance Directives Information Provided: No Advance Directives on File: No Patient : Yes Sexual orientation: Straight/Heterosexual Gender identity: female Meds Allergies Allergy/AdvReac Type Severity Reaction Status Date / Time Penicillins Allergy Swelling Verified 08/24/20 15:00 SALES REPRESENTATIVES Physical Exam Vitals Vital signs: Temp Pulse Resp BP Pulse Ox 98.5 F 75 18 120/58 L 99 09/04/20 12:06 09/04/20 12:06 09/04/20 12:06 09/04/20 12:06 09/04/20 12:06 Body Mass Index 26.2 Additional Comments: Examination reported by JIL Walters included the following: diffuse abdominal tenderness with no rebound or guarding, pelvic exam showed vaginal whitish discharge an erythematous cervix SALES REPRESENTATIVES - Results Labs CBC & Chem 7: 09/04/20 10:13 09/04/20 10:12 Labs: Short CBC 09/04/20 Range/Units 10:13 WBC 7.9 (4.8-10.8) X10*3/uL Hgb 13.8 (12.0-16.0) g/dl Hct 40.0 (37-47) % Plt Count 267 (160-400) X10*3/uL BMP 09/04/20 10:12 Sodium 136 Potassium 4.0 Chloride 106 Carbon Dioxide 23 BUN 8 L Creatinine 0.61 Calcium 8.9 Liver Function 09/04/20 Range/Units 10:12 Total Bilirubin 0.3 (0.0-1.0) mg/dL AST 16 (5-31) U/L ALT 10 (0-31) U/L Alkaline Phosphatase 56 (39-117) U/L Albumin 4.1 (3.5-5.0) g/dL Urine 09/04/20 Range/Units 10:13 Urine Color YELLOW Urine Appearance HAZY Urine pH 7.5 (5.0-8.0) Ur Specific Bitely 1.015 (1.005-1.025) Urine Protein NEG (NEG-TRACE) MG/DL Urine Glucose (UA) 100 H (NEG) MG/DL Assessment and Plan (1) : Status: Acute Recommended Rh and antibody screen. If negative RhoGAM 300 martín cg IM (2) Abdominal pain: Status: Acute Urine culture, check vaginal swept and GC and chlamydia and treat accordingly. Discussed with JIL Walters said the findings on OB ultrasound, specifically subchorionic hemorrhage, does not explain upper and diffuse abdominal pain; differential diagnosis includes but not limited to appendicitis and other abdominal processes need to be ruled out, she will consult the ER physician for further management. I was called for a phone consultation , I was did not see the patient nor examined her.
[2020-09-04 14:38] LABS: CT PCR NOT DETECTED (Not Detect.); NG PCR NOT DETECTED (Not Detect.)
[2020-09-05 12:06] LABS: BV Int Neg Control Negative (Negative); BV Int Pos Control Positive (Positive)
== END 2020-09-04 14:28 | disposition home or self-care (01) ==
PROVIDERS: Physician Assistant Medical; Emergency Provider Emergency Medicine Emergency Medical Services
DX: O20.9 Hemorrhage in early pregnancy, unspecified (principal); O99.611 Diseases of the digestive system complicating pregnancy, first trimester; K59.00 Constipation, unspecified; O21.0 Mild hyperemesis gravidarum; O23.591 Infection of other part of genital tract in pregnancy, first trimester; B37.3 Candidiasis of vulva and vagina; N76.0 Acute vaginitis; B96.89 Other specified bacterial agents as the cause of diseases classified elsewhere; O26.891 Other specified pregnancy related conditions, first trimester; R14.0 Abdominal distension (gaseous); Z3A.09 9 weeks gestation of pregnancy; Z20.822 Contact with and (suspected) exposure to COVID-19
CPT/HCPCS: 36415; 76700; 76705; 76815; 80053; 81001; 81003; 83735; 84702; 85025; 85610; 86850; 86900; 86901; 87086; 87480; 87491; 87510; 87591; 87635; 87660; 96361; 96374; 99284; 99285; J2405

== ENCOUNTER → 2020-09-08 13:53 | Outpatient (BNVA) | payer OTHER, SELFPAY | PROVIDERS: Visit Provider Advanced Practice Midwife | DX: O26.891 Other specified pregnancy related conditions, first trimester (principal); R10.9 Unspecified abdominal pain; Z3A.10 10 weeks gestation of pregnancy | CPT/HCPCS: 99212 ==

== ENCOUNTER 2020-09-15 09:46 | Outpatient (REF) | payer OTHER, SELFPAY ==
[2020-09-15 12:55] LABS: Hematocrit 41.5 % (37-47); Hemoglobin 14.2 g/dl (12.0-16.0); Mean Corpuscular HGB Conc 34.2 g/dl (31.0-35.0); Mean Corpuscular Hemoglobin 30.4 pg (27.0-33.0); Mean Corpuscular Volume 88.9 fL (80-98); Mean Platelet Volume 9.5 fL (9.4-12.3); Platelet Count 272 X10*3/uL (160-400); Red Blood Count 4.67 X10*6/uL (4.20-5.50); Red Cell Distribution Width 13.9 % (11.0-16.0); White Blood Count 8.1 X10*3/uL (4.8-10.8)
[2020-09-15 13:17] LABS: Glucose 1 Hour PP 50gm Dose 84 mg/dL (60-140)
[2020-09-15 13:23] LABS: Amphetamine Screen Urine Not Detected (Not Detect); Barbiturates, Urine Not Detected (Not Detect); Benzodiazepines Screen Urine Not Detected (Not Detect); Cannabinoid Screen Urine Not Detected (Not Detect); Cocaine Screen Urine Not Detected (Not Detect); Opiate Screen Urine Not Detected (Not Detect); Phencyclidine Screen Urine Not Detected (Not Detect)
[2020-09-15 13:48] LABS: Syphilis Screen Nonreactive (Nonreactive)
[2020-09-15 14:02] LABS: HCG Quantitative 129329 mIU/mL
[2020-09-16 13:57] LABS: Hematocrit 41.6 % (35.0-45.0); Hemoglobin 14.3 g/dL (11.7-15.5); MCH 30.4 pg (27.0-33.0); MCV 88.5 fL (80.0-100.0); RDW 13.8 % (11.0-15.0)
[2020-09-17 08:08] LABS: HIV AB/AG Nonreactive (Nonreactive); HIV Num 1 0.08 S/CO (0.00-0.99)
[2020-09-17 08:35] LABS: HBsAGNum1 0.19 S/CO (0.00-0.99); Hepatitis B Surface Antigen Negative (Negative); ~HepC Num1 0.18 S/CO (0.00-0.79); ~Hepatitis C Antibody Nonreactive (Nonreactive)
== END 2020-09-15 09:47 | disposition home or self-care (01) ==
LOC: HO.LAB 09:46
PROVIDERS: Obstetrics & Gynecology; Visit Provider Advanced Practice Midwife
DX: Z34.91 Encounter for supervision of normal pregnancy, unspecified, first trimester (principal)
CPT/HCPCS: 80307; 83020; 84702; 85014; 85018; 85027; 85041; 86762; 86780; 86787; 86803; 86850; 86900; 86901; 87086; 87340; 87389; 99212

== ENCOUNTER 2020-10-01 14:11 | Outpatient (REF) | payer OTHER, SELFPAY ==
--- NOTE | ~2020-10-01 | US_ITS ---
EXAMINATION: OBSTETRICAL ULTRASOUND, FIRST TRIMESTER HISTORY: A 20-year-old at 12.5 weeks of gestation NT screening COMPARISON: 09/04/2020 TECHNIQUE: Real time transabdominal imaging with color and M-mode Doppler. FINDINGS: A single, live IUP CRL of 74.5 mm c/w 13.4wks is noted. Heart Rate: 169 beats per minute. Normal yolk sac seen. NT was 1.5.mm. NB Present The embryo appears sonographically wnl for this GA. Both maternal ovaries are seen and appear normal. GESTATIONAL AGE: 1. Established GA: 12.5 wks 2. GA from [facility]: 13.4 wks ESTIMATED DATE OF DELIVERY: 1. Established ERVIN: 04/10/2021 2. ERVIN from [facility]: 04/03/2021 US/US OB 1T nuc measure IMPRESSION: 1. A single live IUP 2. Size equals dates 3. NT of 1.5 mm MFM Consultation: I reviewed the ultrasound findings along with significance of NT measurement. The NT of less than 3mm is generally reassuring. However, the sensitivity for T21 detection is only 60%. I reviewed the availability of serum aneuploidy screening which includes cell-free DNA and placental protein based tests. I discussed the sensitivity, false-positive rate, and other limitations associated with each test. I also reviewed the availability of invasive diagnostic tests that are associated small but definite risk of miscarriage. We also reviewed the differences between screening tests and diagnostic tests. After our discussion, she opted for the First trimester screening that is based on cell-free DNA or non-invasive testing (NIPT). The result will be faxed to your office in approximately 7 days. A follow up at 18 weeks for survey has been scheduled. Thank you very much for this referral. Total time 30 minutes. The time spent was devoted to counseling the patient about the disease and diagnosis, coordinating care including reviewing her records, pertinent lab data and studies, as well as discussing diagnostic evaluation and workup, plan therapeutic interventions and future disposition of care. This includes any additional research needed to obtain further information in formulating the plan of care of this patient. This note was generated with a voice recognition program. Please excuse any errors which may have been overlooked during my review of this note. Sometimes these errors may affect the content or meaning of a given sentence.
== END 2020-10-01 14:12 | disposition home or self-care (01) ==
LOC: HO.US 14:11
PROVIDERS: Visit Provider Advanced Practice Midwife
DX: O99.341 Other mental disorders complicating pregnancy, first trimester (principal); F32.9 Major depressive disorder, single episode, unspecified; Z3A.12 12 weeks gestation of pregnancy
CPT/HCPCS: 76813; 81003; 99212

== ENCOUNTER 2020-10-01 14:12 | Outpatient (REF) | payer OTHER, SELFPAY | END 2020-10-01 14:13 | disposition home or self-care (01) | LOC: HO.LAB 14:12 | PROVIDERS: Visit Provider Advanced Practice Midwife | DX: Z01.419 Encounter for gynecological examination (general) (routine) without abnormal findings (principal) | CPT/HCPCS: 88142 ==

== ENCOUNTER → 2020-10-29 11:40 | Outpatient (BNVA) | payer OTHER, SELFPAY | PROVIDERS: Visit Provider Advanced Practice Midwife | DX: Z36.3 Encounter for antenatal screening for malformations (principal); Z34.02 Encounter for supervision of normal first pregnancy, second trimester; Z3A.16 16 weeks gestation of pregnancy | CPT/HCPCS: 99212 ==

== ENCOUNTER 2020-11-18 16:28 | Emergency (ER) | payer OTHER, SELFPAY ==
[2020-11-18 16:35] VITALS: BP 128/71; PULSE 88; RESP 16; TEMP 36.9; O2SAT 98; BMI 27.3
[2020-11-18] MEDS: Metoclopramide HCl 10 MG TABLET PO (18:22)
[2020-11-18] MEDS: Famotidine 20 MG TABLET PO (18:22)
[2020-11-18 18:28] VITALS: BP 110/59; PULSE 89; RESP 16; TEMP 36.6; O2SAT 99
[2020-11-18 18:34] LABS: MANUAL DIFF FLAG NO
[2020-11-18 18:35] LABS: Basophils Absolute Auto 0.1 X10*3/uL (0.0-0.2); Basophils Percent Auto 0.5 % (0-2); Eosinophils Absolute Auto 0.2 X10*3/uL (0.0-0.4); Hematocrit 35.6 % (37-47); Hemoglobin 12.5 g/dl (12.0-16.0); Imm Gran Abs Auto 0.04 X10*3/uL (0.00-0.03); Imm Gran Pct Auto 0.4 % (0.0-0.4); Lymphocytes Absolute Auto 1.7 X10*3/uL (1.2-4.9); Lymphocytes Percent Auto 16.5 % (20-40); Mean Corpuscular HGB Conc 35.1 g/dl (31.0-35.0); Mean Corpuscular Hemoglobin 31.6 pg (27.0-33.0); Mean Corpuscular Volume 90.1 fL (80-98); Mean Platelet Volume 9.2 fL (9.4-12.3); Monocytes Absolute Auto 0.9 X10*3/uL (0.1-1.2); Monocytes Percent Auto 8.8 % (2-11); Neutrophils Absolute Auto 7.4 X10*3/uL (2.0-8.3); Neutrophils Percent Auto 71.8 % (45-73); Platelet Count 205 X10*3/uL (160-400); Red Blood Count 3.95 X10*6/uL (4.20-5.50); Red Cell Distribution Width 13.6 % (11.0-16.0); White Blood Count 10.3 X10*3/uL (4.8-10.8)
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
[2020-11-18 19:05] LABS: Alanine Aminotransferase 17 U/L (0-31); Albumin Level 3.5 g/dL (3.5-5.0); Alkaline Phosphatase 51 U/L (39-117); Anion Gap 10 (12-20); Aspartate Amino Transferase 17 U/L (5-31); Bilirubin Total 0.2 mg/dL (0.0-1.0); Blood Urea Nitrogen 5 mg/dL (9-16); Calcium 8.6 mg/dL (8.4-10.2); Carbon Dioxide 22 mmol/L (22-29); Chloride 108 mmol/L (96-108); Creatinine Clr Calc Pharmacy 135.5; Estimated Glomerular Filt Rate > 60; Glucose Random 77 mg/dL (60-115); Lipase 24 U/L (8-78); Potassium 3.6 mmol/L (3.3-5.1); Sodium 136 mmol/L (135-145); Total Protein 5.9 g/dL (6.5-8.0)
[2020-11-18 19:16] LABS: Glucose Urine UA >=1000 MG/DL (NEG); Leukocyte Esterase Urine NEG (NEG); Nitrite Urine NEG (NEG); Specific Gravity - Urine 1.015 (1.005-1.025); Urine Blood NEG (NEG); Urine Ketones NEG (NEG); Urine Protein NEG (NEG-TRACE)
[2020-11-18 19:17] LABS: Appearance Urine CLEAR; Color Urine YELLOW
[2020-11-18 19:23] LABS: RBC Urine 0 /HPF (0); Squamous Epithelial Cell Urine 1+ /LPF; WBC Urine 0 /HPF (0-4)
[2020-11-18 19:33] LABS: HCG Quantitative 23060 mIU/mL
== END 2020-11-18 19:33 | disposition home or self-care (01) ==
PROVIDERS: Physician Assistant; Emergency Provider Emergency Medicine
DX: O99.612 Diseases of the digestive system complicating pregnancy, second trimester (principal); K21.9 Gastro-esophageal reflux disease without esophagitis; Z3A.20 20 weeks gestation of pregnancy
CPT/HCPCS: 36415; 80053; 81001; 83690; 84702; 85025; 99283; 99284

== ENCOUNTER 2020-11-19 12:13 | Outpatient (REF) | payer OTHER, SELFPAY ==
--- NOTE | ~2020-11-19 | US_ITS ---
EXAMINATION: US OBSTETRICAL CLINICAL INFORMATION: 20-year-old at 19.5 weeks of gestation Screening for anomaly COMPARISON: 10/01/2020 TECHNIQUE: Real-time transabdominal ultrasound was performed using C1-5 megahertz transducer. FINDINGS: A single, active, fetus is seen in vertex presentation. The placenta is posterior without previa, and the amniotic fluid volume is wnl. MEASUREMENTS: 1. Biparietal Diameter: 5.1 cm; 21.3 wks 2. Occipital Frontal Diameter: 6.4 cm 3. Head Circumference: 18.3 cm; 20.5 wks 4. Abdominal Circumference: 14.6 cm; 20.0 wks 5. Femur Length: 3.5 cm; 21.1 wks 6. Humerus Length: 3.1 cm; 20.2 wks 7. Tibia Length: 2.9 cm; 20.5 wks 8. Ulna Length: 2.9 cm; 20.4 wks 9. Lateral ventricle: 0.7 cm 10. Cerebellum: 1.98 cm; 20.2 wks 11. Cisterna Magna: 0.21 cm 12. Nuchal Fold: 5.13 mm 13. Heart Rate: 143 beats per minute Rt ovary: normal Lt ovary: normal Cervical length 3.2 cm on T/A. GESTATIONAL AGE: 1. Established GA: 19.5 wks 2. GA from [facility]: 20.6 wks ESTIMATED DATE OF DELIVERY: 1. Established ERVIN: 04/10/2021 2. ERVIN from [facility]: 04/02/2021 ANATOMY: The visualized anatomy includes but not limited to: 1. Cranium: Normal 2. Intracranial anatomy: cavum septum pellucidi, lateral ventricles, choroid plexus, cerebellum, posterior fossa, third and fourth ventricles. 3. face: orbits, lip/palate, profile, nasal bone 4. Heart: four-chamber view of the heart, ventricular septum, foramen ovale, pulmonary vein, left and right outflow tracts, three-vessel view, 3 vessel trachea view, aortic and ductal arches, situs.. 5. Diaphragm: Normal 6. Abdominal wall: Normal 7. Cord Insertion: Normal 8. Spine: Cervical, thoracic, lumbar, sacral. 9. Stomach: Normal size and shape 10. Right Kidney: Normal 11. Left Kidney: Normal 12. 3 vessel cord: Normal 13. Upper extremity: Open hands, fifth digit. 14. Lower extremity: Tibia, fibula, bilateral feet. 15. Bladder: Normal 16. Genitalia: Male, patient aware US/US OB /maternal detail IMPRESSION: 1. Single, living, intrauterine with appropriate biometry. 2. Normal survey DISCUSSION: I reviewed today's ultrasound findings. We discussed the limitations of ultrasound in diagnosing aneuploidy and other congenital abnormalities. I reviewed the differences between screening test and diagnostic test. Amniocentesis was discussed and declined. She was informed that the baseline incidence of congenital abnormalities is approximately 3-5%. Not all these conditions are diagnosable in utero. RECOMMENDATIONS: 1. Follow-up when necessary. Thank you for allowing me to participate in her care. Total time 20 minutes. The time spent was devoted to counseling the patient about the disease and diagnosis, coordinating care including reviewing her records, pertinent lab data and studies, as well as discussing diagnostic evaluation and workup, plan therapeutic interventions and future disposition of care. This includes any additional research needed to obtain further information in formulating the plan of care of this patient. This note was generated with a voice recognition program. Please excuse any errors which may have been overlooked during my review of this note. Sometimes these errors may affect the content or meaning of a given sentence.
== END 2020-11-19 12:14 | disposition home or self-care (01) ==
LOC: HO.US 12:13
PROVIDERS: Visit Provider Advanced Practice Midwife
DX: Z34.92 Encounter for supervision of normal pregnancy, unspecified, second trimester (principal); Z36.3 Encounter for antenatal screening for malformations
CPT/HCPCS: 76811

== ENCOUNTER → 2020-11-30 13:55 | Outpatient (BNVA) | payer OTHER, SELFPAY | PROVIDERS: Visit Provider Obstetrics & Gynecology | DX: O26.892 Other specified pregnancy related conditions, second trimester (principal); R51.9 Headache, unspecified; H53.8 Other visual disturbances; Z3A.21 21 weeks gestation of pregnancy; Z88.0 Allergy status to penicillin; Z83.3 Family history of diabetes mellitus | CPT/HCPCS: 99212 ==

== ENCOUNTER → 2020-12-28 14:17 | Outpatient (BNVA) | payer OTHER, SELFPAY | PROVIDERS: Visit Provider Obstetrics & Gynecology | DX: O26.842 Uterine size-date discrepancy, second trimester (principal); Z3A.25 25 weeks gestation of pregnancy | CPT/HCPCS: 99212 ==

== ENCOUNTER 2020-12-31 11:00 | Outpatient (REF) | payer OTHER, SELFPAY ==
--- NOTE | ~2020-12-31 | US_ITS ---
EXAMINATION: OBSTETRICAL ULTRASOUND, Follow up HISTORY: 20-year-old at 25.5 weeks of gestation Size date discrepancy COMPARISON: 11/19/2020 TECHNIQUE: Real time transabdominal imaging with color and M-mode Doppler. PRESENTATION: Breech PLACENTA LOCATION: Posterior without previa AMNIOTIC FLUID: TERRELL 21.4 MEASUREMENTS: 1. Biparietal Diameter: 6.7 cm; 27.1 wks 2. Head Circumference: 24.9 cm; 27.1 wks 3. Abdominal Circumference: 20.6 cm; 25.2 wks 4. Femur Length: 5.0 cm; 27.0 wks 5. Heart Rate: 128 beats per minute WEIGHT: EFW: 893 grams (1 lbs 15 oz) -- 57 %. GESTATIONAL AGE: 1. Established GA: 25.5 wks 2. GA from [facility]: 26.5 wks ESTIMATED DATE OF DELIVERY: 1. Established ERVIN: 04/10/2021 2. ERVIN from [facility]: 04/03/2021 US/US OB follow up IMPRESSION: 1. A single active fetus is in breech presentation 2. Size equals dates 3. Normal amniotic fluid volume Thank you very much for this referral. This note was generated with a voice recognition program. Please excuse any errors which may have been overlooked during my review of this note. Sometimes these errors may affect the content or meaning of a given sentence.
== END 2020-12-31 11:01 | disposition home or self-care (01) ==
LOC: HO.US 11:00
PROVIDERS: Visit Provider Obstetrics & Gynecology
DX: O26.849 Uterine size-date discrepancy, unspecified trimester (principal)
CPT/HCPCS: 76816

== ENCOUNTER 2021-01-13 09:39 | Outpatient (REF) | payer OTHER, SELFPAY ==
[2021-01-13 11:52] LABS: Hematocrit 32.7 % (37-47); Hemoglobin 11.2 g/dl (12.0-16.0); Mean Corpuscular HGB Conc 34.3 g/dl (31.0-35.0); Mean Corpuscular Volume 87.7 fL (80-98); Mean Platelet Volume 9.5 fL (9.4-12.3); Platelet Count 215 X10*3/uL (160-400); Red Blood Count 3.73 X10*6/uL (4.20-5.50); Red Cell Distribution Width 12.7 % (11.0-16.0); White Blood Count 9.3 X10*3/uL (4.8-10.8)
[2021-01-13 12:14] LABS: Glucose 1 Hour PP 50gm Dose 150 mg/dL (60-140)
[2021-01-14 04:19] LABS: Syphilis Screen Nonreactive (Nonreactive)
== END 2021-01-13 09:40 | disposition home or self-care (01) ==
LOC: HO.LAB 09:39
PROVIDERS: Visit Provider Obstetrics & Gynecology
DX: O26.849 Uterine size-date discrepancy, unspecified trimester (principal)
CPT/HCPCS: 36415; 85027; 86780

== ENCOUNTER 2021-01-14 07:36 | Outpatient (REF) | payer OTHER, SELFPAY ==
[2021-01-14 08:26] LABS: Glucose Fasting 79 mg/dL (60-99)
[2021-01-14 09:33] LABS: Glucose 1 Hour 141 mg/dL
[2021-01-14 11:22] LABS: Glucose 2 Hour 110 mg/dL
[2021-01-14 12:12] LABS: Glucose 3 Hour 113 mg/dL
== END 2021-01-14 07:37 | disposition home or self-care (01) ==
LOC: HO.LAB 07:36
PROVIDERS: Visit Provider Obstetrics & Gynecology
DX: O99.810 Abnormal glucose complicating pregnancy (principal)
CPT/HCPCS: 36415; 82951

== ENCOUNTER → 2021-01-18 14:56 | Outpatient (BNVA) | payer OTHER, SELFPAY | PROVIDERS: Visit Provider Obstetrics & Gynecology | DX: Z34.03 Encounter for supervision of normal first pregnancy, third trimester (principal); Z3A.28 28 weeks gestation of pregnancy | CPT/HCPCS: 99212 ==

== ENCOUNTER → 2021-02-01 14:36 | Outpatient (BNVA) | payer OTHER, SELFPAY | PROVIDERS: Visit Provider Obstetrics & Gynecology | DX: Z34.03 Encounter for supervision of normal first pregnancy, third trimester (principal); Z3A.30 30 weeks gestation of pregnancy | CPT/HCPCS: 99212 ==